=== PATIENT | female | born 1980 | race Caucasian/White ===

== ENCOUNTER 2016-09-14 19:33 | Emergency (ER) | payer OTHER ==
[~2016-09-14] VITALS: Ht 165.1 cm; Wt 79.1 kg
[~2016-09-14 19:33] MED LIST: BACT800T5 PO; BUPR150T3 PO; HYDR25TA5 PO
[2016-09-14 19:47] VITALS: BP 118/81; PULSE 92; RESP 18; TEMP 98.4; O2SAT 98
[2016-09-14 19:57] VITALS: BP 118/81; PULSE 92; RESP 18; TEMP 98.4; O2SAT 98
--- NOTE | 2016-09-14 20:12 | PD ---
HPI Chief Complaint: Injury Time Seen by Provider: 20:05 Travel History International Travel<30 days: No Contact w/Intl Traveler<30days: No Traveled to known affect area: No History of Present Illness HPI 36-year-old female presents to the emergency department for complaint of right lower leg pain and swelling associated with right foot and ankle pain with swelling. Patient's noted symptoms grossly worsening over the past several weeks. Patient twisted her ankle last week. Patient states today painful to attempt weightbearing so follow decided to come and have it evaluated. Patient does not take control pills is status post tubal ligation denies tobacco use no family history of personal history of clotting disorder. No recent long distance travel protracted bedrest her surgical procedure. Patient states that she works long hours at a [employer] in by her 6 hour work has to limp to accommodate foot ankle and lower leg pain. No personal history of arthritis gouty arthritis. Patient does however take hydrochlorothiazide for hypertension. Pain intensity with attempted weightbearing or palpation 6/10 in intensity. PFSH Past Medical History Narrative Medical HTN; tubal ligation, breast implants; no tobacco use, positive alcohol use; nursing notes reviewed Cardiovascular Problems: Yes (htn on meds) Diminished Hearing: No Hypertension: Yes Immunizations Current: Yes Tetanus Vaccination: < 5 Years Influenza Vaccination: No ?: Not LMP: 3-17 Tubal Ligation: Yes Past Surgical History Other Surgery: Yes (breast implants) Social History Alcohol Use: Yes (occas) Tobacco Use: No Substance Use: No Allergies-Medications (Allergen,Severity, Reaction): Coded Allergies: Stadol (Verified Allergy, Unknown, 09/14/16) Reported Meds & Prescriptions Reported Meds & Active Scripts Active Hydrochlorothiazide 25 Mg Tab 25 Mg PO DAILY Reported Bupropion HCl ER 24 HR (Bupropion HCl) 150 Mg Tab 150 Mg PO DAILY Review of Systems Except as stated in HPI: all other systems reviewed are Neg General / Constitutional: No: Fever, Chills HENT: No: Congestion Cardiovascular: No: Chest Pain or Discomfort Respiratory: No: Shortness of Breath, Pleuritic Pain Gastrointestinal: No: Abdominal Pain Genitourinary: No: Flank Pain Musculoskeletal: Positive: Myalgias, Arthralgias, Limited ROM (right ankle), Edema (rlower leg/ankle), Pain (rle) Skin: No Rash Neurologic: No: Weakness Psychiatric: No: Anxiety Endocrine: No: Heat Intolerance Hematologic/Lymphatic: No: Easy Bruising Physical Exam Narrative GENERAL: Well-developed well-nourished female in no acute distress no respiratory distress SKIN: Warm and dry. HEAD: Normocephalic. EYES: No scleral icterus. No injection or drainage. NECK: Supple, trachea midline. No JVD or lymphadenopathy. CARDIOVASCULAR: Regular rate and rhythm without murmurs, gallops, or rubs. RESPIRATORY: Breath sounds equal bilaterally. No accessory muscle use. GASTROINTESTINAL: Abdomen soft, non-tender, nondistended. MUSCULOSKELETAL: No cyanosis, right lower leg with edema affecting the lower leg ankle and to a lesser extent the foot patient has palpable tenderness about the calf unable to perform home and secondary to marked ankle pain no ankle increased warmth or redness ecchymosis or deformity. Patient has reproducible tenderness to palpation of the plantar surface of the foot just distal to the calcaneus distally extremity is neurovascular tendon intact with 2+ palpable dorsalis pedis pulse and brisk capillary refill less than 2 seconds per digit BACK: Nontender without obvious deformity. No CVA tenderness. Data Data Last Documented VS Vital Signs Date Time Temp Pulse Resp B/P Pulse Ox O2 Delivery O2 Flow Rate FiO2 09/14/16 19:57 98.4 92 18 118/81 98 Orders Ankle, Complete ([id number]) (09/14/16 ) Foot, Complete ([id number]) (09/14/16 ) Us Leg Venous Doppler (09/14/16 ) Support Splint (09/14/16 21:28) Crutches (09/14/16 21:28) Ibuprofen (Motrin) (09/14/16 21:45) MDM Medical Decision Making Medical Screen Exam Complete: Yes Emergency Medical Condition: Yes Medical Record Reviewed: Yes Interpretation(s) Last Impressions Lower Extremity Ultrasound 09/14/16 0000 Signed Impressions: Service Date/Time: Wednesday, September 14, 2016 20:44 - CONCLUSION: Normal examination. Reza Gallo MD Foot X-Ray 09/14/16 0000 Signed Impressions: Service Date/Time: Wednesday, September 14, 2016 20:24 - CONCLUSION: 1. No acute findings. Accessory ossicles adjacent to the ankle joint. Reza Gallo MD Ankle X-Ray 09/14/16 0000 Signed Impressions: Service Date/Time: Wednesday, September 14, 2016 20:28 - CONCLUSION: 1. No acute fracture. Accessory ossicles at the ankle joint. Reza Gallo MD Differential Diagnosis Arthritis, gouty arthritis, plantar fasciitis, DVT; also to consider septic arthritis Narrative Course Patient with foot and ankle pain 2-3 weeks progressive worsening since ankle twisting injury 1 week ago and more recently has noted swelling of the right lower leg and pain with weightbearing on the right ankle and right foot. Patient is not notice any bruising any redness increased warmth or deformity. Patient has noted no coolness or pallor of the foot. Patient denies prior history of gouty arthritis does take hydrochlorothiazide and occasionally drinks alcoholic beverages. No recent febrile illness and no recent respiratory illness or antibiotic use and is not diabetic. Patient does have sharp pain to the plantar surface of the foot with initial weightbearing each morning affecting the right foot. Patient only wears soft soled tennis shoes at work with prolonged standing. In view of swelling of the lower leg will obtain ultrasound to evaluate for DVT, imaging study of the ankle and foot obtained to make sure no evidence for stress fracture suspect chronic changes on imaging. Imaging reveals some soft tissue swelling chronic changes osteophytes and no fracture; ultrasound negative for DVT. Patient administered padded Camilo crutches and weight-based ibuprofen. Patient is encouraged to follow-up with primary care provider. Diagnosis Primary Impression: Right ankle pain Additional Impression: Plantar fasciitis of right foot Referrals: Primary Care Physician 2 days Patient Instructions: General Instructions Departure Forms: Tests/Procedures, Work Release Special Instructions: no work x 2 days Additional Instructions: Use crutches to assist with ambulation Wear padded camilo for support ( do not wear while sleeping) elevate right ankle foot take pain medication as prescribed as needed Take weight based ibuprofen as prescribed as needed -- do not use over the counter ibuprofen/advil/motrin/aleve/naprosyn or naproxyn while taking prescription ibuprofen Follow-up with primary care provider call office in a.m. to schedule follow-up appointment No work times 2 days Med/Other Pt SpecificInfo: Prescription(s) given Scripts Hydrocodone-Acetaminophen (Lortab)5-325 Mg Tab1 Tab PO Q6H PRN (PAIN) #10 TAB Ref 0 Prov:Michelle Sunshine MD 09/14/16 Ibuprofen 800 Mg [id number] Mg PO Q8H PRN (PAIN GREATER THAN 5) #15 TAB Ref 0 Prov:Michelle Sunshine MD 09/14/16 Disposition: 01 DISCHARGE HOME Condition: Stable Michelle Sunshine MD Sep 14, 2016 20:12
--- NOTE | 2016-09-14 20:57 | RADHPO ---
EXAM DATE/TIME: 09/14/2016 20:44 [facility] COMPARISON: No previous studies available for comparison. INDICATIONS : Right leg pain. MEDICAL HISTORY : Hypertension. SURGICAL HISTORY : Tubal ligation. Breast implants. ENCOUNTER: Initial ACUITY: 2 months PAIN SCORE: 3/10 LOCATION: Right leg. TECHNIQUE: Venous ultrasound of the leg was performed from the inguinal ligament to the proximal calf. Real-benjie e, color Doppler and spectral tracing, compression and augmentation techniques were used. FINDINGS: There is normal compressibility of the deep venous system from the inguinal region to the proximal ca lf. No echogenic clot is seen in the lumen of the common femoral, femoral, popliteal, and posterior tibial veins. There is a normal response of the venous system to proximal and distal augmentation an d respiration. CONCLUSION: Normal examination. Reza Gallo MD on September 14, 2016 at 20:55 Board Certified Radiologist. This report was verified electronically.
--- NOTE | 2016-09-14 21:14 | RADHPO ---
EXAM DATE/TIME: 09/14/2016 20:24 [facility] COMPARISON: No previous studies available for comparison. INDICATIONS : Fall. Right foot pain. MEDICAL HISTORY : None. SURGICAL HISTORY : None. ENCOUNTER: Initial ACUITY: 1 week PAIN SCORE: 6/10 LOCATION: Right lateral FINDINGS: Three view examination of the right foot demonstrates no soft tissue swelling, dislocation, or fractu re. The tarsal bones appear intact. The interphalangeal and metatarsophalangeal joints are intact. The calcaneus is intact. Bony mineralization is normal. CONCLUSION: 1. No acute findings. Accessory ossicles adjacent to the ankle joint. Reza Gallo MD on September 14, 2016 at 21:10 Board Certified Radiologist. This report was verified electronically.
--- NOTE | 2016-09-14 21:15 | RADHPO ---
EXAM DATE/TIME: 09/14/2016 20:28 [facility] COMPARISON: No previous studies available for comparison. INDICATIONS : Fall. Right ankle pain. MEDICAL HISTORY : None. SURGICAL HISTORY : None. ENCOUNTER: Initial ACUITY: 4 - 6 days PAIN SCORE: 6/10 LOCATION: Right lateral FINDINGS: Soft tissue swelling is present at the ankle. There are accessory ossicles anterior and posterior to the ankle joint. No definite acute fracture. CONCLUSION: 1. No acute fracture. Accessory ossicles at the ankle joint. Reza Gallo MD on September 14, 2016 at 21:13 Board Certified Radiologist. This report was verified electronically.
[2016-09-14] MEDS ORDERED: IBUPROFEN 800 MG TAB PO ONE (21:45)
[2016-09-14] MEDS ORDERED: HYDR-3533 PO (22:01)
[2016-09-14] MEDS ORDERED: IBUP800T23 PO (22:01)
== END 2016-09-14 22:07 | disposition home or self-care (01) ==
LOC: PHEFT 19:33
DX: M25.571 Pain in right ankle and joints of right foot (principal); M72.2 Plantar fascial fibromatosis; I10 Essential (primary) hypertension
CPT/HCPCS: 73610; 73630; 93971; 99284; E0113